=== PATIENT | male | born 1945 | race Caucasian/White ===

== ENCOUNTER 2021-07-10 15:14 | Emergency (ER) | payer OTHER ==
[2021-07-10 16:07] LABS: EOSINOPHIL 2.5 % (0-7); HCT 42.3 % (42.0-52.0); HGB 14.6 g/dl (13.2-18.0); LYMPHOCYTE 22.3 % (15-48); MCH 29.4 pg (25.0-31.0); MCHC 34.5 g/dL (32.0-36.0); MCV 85.3 fL (78.0-100.0); MONOCYTE 10.2 % (0-12); MPV 10.3 fL (6.0-9.5); NEUTROPHIL 63.6 % (41-80); NRBC 0; PLT 167 K/uL (150-400); RBC 4.96 M/uL (4.70-6.00); RDW 12.3 % (11.5-14.0); WBC 5.1 K/uL (4.0-10.5)
[2021-07-10 16:11] LABS: INR 1.08 (0.9-1.2); PROTHROMBIN TIME 13.4 SECONDS (11.8-13.4)
[2021-07-10 16:12] LABS: PTT 31.8 SECONDS (24.4-34.7)
[2021-07-10 16:18] LABS: ALBUMIN 4.2 g/dL (3.4-5.0); BILIRUBIN - TOTAL 0.6 mg/dL (0.2-1.0); BUN/CREAT RATIO (CALC) 14.7 RATIO; CREATININE 1.02 mg/dL (0.67-1.17); POTASSIUM 3.8 mmol/L (3.5-5.1); TOTAL PROTEIN 7.2 g/dL (6.4-8.2)
== END 2021-07-10 17:37 | disposition home or self-care (01) ==
LOC: FER 15:14
PROVIDERS: Emergency Medicine
DX: R20.2 Paresthesia of skin (principal); M54.2 Cervicalgia; I10 Essential (primary) hypertension; Z86.73 Personal history of transient ischemic attack (TIA), and cerebral infarction without residual deficits; Z28.310 Unvaccinated for COVID-19
CPT/HCPCS: 36415; 70450; 71045; 80053; 84484; 85025; 85610; 85730; 93005